=== PATIENT | female | born 1950 | race Caucasian/White ===

== ENCOUNTER 2017-11-02 06:27 | Inpatient (IN) ==
[~2017-11-02 06:27] MED LIST: Bacitracin 50,000 UNIT, Polymyxin B Sulfate 500,000 UNIT, Sodium Chloride IRRigation 1,... IR ONE
[2017-11-02] MEDS ORDERED: CeFAZolin Syr 2,000MG/20 ML 2,000 MG/20 ML SYRINGE IVPB ONE (06:59)
[2017-11-02] MEDS ORDERED: Ringers Solution, Lactated 1,000 ML IVC SCH (07:00)
[2017-11-02] MEDS ORDERED: Acetaminophen IV 1,000 MG/100 ML INFUS..BTL IVPB ONE (07:28)
[2017-11-02] MEDS ORDERED: Pregabalin 75 MG CAPSULE PO ONE (07:28)
[2017-11-02] MEDS ORDERED: Famotidine 20 MG/2 ML VIAL IVP ONE (07:28)
[2017-11-02] MEDS ORDERED: *HR* HYDROmorphone 2 MG TABLET PO PRN (07:30)
[2017-11-02] MEDS ORDERED: *HR* Labetalol 20 MG/4 ML SYRINGE IVP PRN (07:30)
[2017-11-02] MEDS ORDERED: *HR* Promethazine 25 MG/ML VIAL IVP PRN (07:30)
[2017-11-02] MEDS ORDERED: MORPHINE SUL Oral CONC 10 MG/0.5 ML ORAL.SYG SL PRN (07:30)
--- NOTE | 2017-11-02 07:37 | Anesthesia Evaluation PreOp ---
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 (Anxiety/Depression) Other Medical History: Renal (Hx R-kidney Ca s/p nephrectomy,), Thyroid ( Hypothyroidism,), GERD (IBS), Other (Pernicious anemia) Anesthesia History: No Prior Anesthetic Complications, Past Anesthesia (Hyster, R-Nephrectomy re: kidney CA 2009, D&C, Bladder suspension, Colonoscopy) Alcohol Use: none Medications and Allergies Escitalopram [Lexapro] 20 mg PO DAILY 11/02/17 [History] LORazepam [Ativan] 0.5 mg PO BID PRN 11/02/17 [History] Levothyroxine Sodium 150 mg PO DAILY 11/02/17 [History] Levothyroxine Sodium [Levo-T] 300 mcg PO DAILY 11/02/17 [History] 3 Allergy/AdvReac Type Severity Reaction Status Date / Time Oxycodone [From Percocet] Allergy Rash Verified 11/02/17 06:55 - Meds/Allergy Pre-op Review Medications Reviewed: Yes Allergies Reviewed: Yes Beta Blockers on Current Med List: No Anesthesia Results - Labs Laboratory Tests 10/26/17 10/26/17 10/26/17 09:54 09:54 09:54 WBC 6.0 Hgb 13.2 Hct 40.9 Plt Count 311 PT 11.3 INR 1.1 APTT 30.4 Sodium 140 Potassium 3.8 Chloride 107 Carbon Dioxide 23 BUN 17 Creatinine 1.11 Est GFR (Non-Af Amer) 49 L Anesthesia Exam O2 Sat Height 1.75 m Height 1.75 m Weight 74.389 kg Weight 74.389 kg O2 Sat by Pulse Oximetry 99 Vital Signs Temp Pulse Resp BP Pulse Ox 98.1 F 84 18 115/66 99 11/02/17 06:46 11/02/17 06:46 11/02/17 06:46 11/02/17 06:46 11/02/17 06:46 Height: 5'8" Weight: 162# BMI = 24 NPO (# of Hours): MNOc Pain Scale Used: Numeric (1 - 10) - HEENT Pupil (Motor): Pupils equal Mallampati: II Teeth: Normal Oral Opening: Greater than 3 - AIR[employer] WORK[employer] LOC: Oriented [employer] WORK[employer] Motor: Normal RUE, Normal LUE, Normal RLE, Normal Face, Deficit LLE [employer] WORK[employer] Sensory: Normal: RUE, LUE, RLE, Face, Deficit: LLE - Cardiac Rhythm: Regular Murmur: None - Pulmonary Breath Sounds: bilateral Clear Respiratory Effort: Symmetrical Anesthesia Assess/Plan ASA Score: 3 (Hx Kidney Ca, Hypothyroidism, Anxiety/Depression, IBS,) Modified Prather Scale for Level of Consciousness: Cooperative, oriented, and tranquil Anesthetic Plan: General Monitoring Plan: Standard Monitors Recovery Plan: PACU Anes Supervising Prov Stmt: Pt seen/evaluated, R&B Discussed,questions answered and consent obtained. Tru Moore MD
[2017-11-02] MEDS ORDERED: *HR* FentaNYL (PF) 100 MCG/2 ML VIAL ONE ×2 (07:48→11:09)
[2017-11-02] MEDS ORDERED: *HR* Propofol 200 MG/20 ML VIAL IVP ONE (07:48)
[2017-11-02] MEDS ORDERED: *HR* Remifentanil 1 MG VIAL IVP ONE ×2 (07:48→09:54)
[2017-11-02] MEDS ORDERED: *HR* Midazolam HCl 2 MG/2 ML VIAL ONE ×2 (07:48→09:26)
[2017-11-02] MEDS ORDERED: Lidocaine -MPF 2% 2 ML VIAL ONE ×2 (07:49→07:54)
[2017-11-02] MEDS ORDERED: *HR* Succinylcholine 200 MG/10 ML VIAL IVP ONE (07:49)
--- NOTE | 2017-11-02 07:58 | History & Physical Report ---
Date of Encounter: 11/02/17 Time of Encounter: 07:58 24 Hour HP Update - Instructions Instructions: If the History and Physical is less than 30 days old and was completed prior to A.M. admission and or procedure and has NOT been updated on calendar day of procedure please complete this update prior to performing procedure. - Update Patient reports changes in Medical Condition: No Changes in examination, assessment, or condition: No Changes in Medication: No Preop tests/diagnostics Reviewed: Yes Pre-Op MRSA Screen: Negative Surgery Remains Indicated: Yes Consent for Planned Operative Procedure(s) Verified: Yes - Pre-Operative Checklist Preoperative Checklist Indicated: No Prophylactic Antibiotic Ordered: Yes Home Medications Include Beta Nader: No Beta Nader Taken Today (Day of Surgery): No Beta Nader Taken Yesterday (Day Prior to Surgery): No Is VTE Prophylaxis Indicated?: Yes
[2017-11-02] MEDS ORDERED: EPHEDrine 50 MG/ML VIAL ONE ×2 (08:24→10:17)
[2017-11-02] MEDS ORDERED: Dexamethasone 4 MG/ML VIAL ONE (08:58)
[2017-11-02] MEDS ORDERED: Ondansetron 4 MG/2 ML VIAL ONE (08:58)
[2017-11-02] MEDS ORDERED: *HR* Rocuronium Bromide 50 MG/5 ML VIAL ONE (09:43)
[2017-11-02] MEDS ORDERED: Esmolol 100 MG/10 ML VIAL IVP ONE (11:37)
[2017-11-02] MEDS: Esmolol 100 MG/10 ML VIAL IVP PRN ×2 (12:00→12:10)
[2017-11-02] MEDS ORDERED: Naloxone 0.4 MG/ML INJ IVP PRN (13:45)
[2017-11-02] MEDS ORDERED: Ondansetron 4 MG/2 ML VIAL IVP PRN (13:45)
[2017-11-02] MEDS ORDERED: Acetaminophen 325 MG TABLET PO PRN (13:45)
--- NOTE | 2017-11-02 15:00 | Anesthesia Evaluation Post Op ---
Date of Encounter: 11/02/17 Time of Encounter: 14:58 - Vital Signs Vital Signs: Vital Signs Temp Pulse Resp BP Pulse Ox 11/02/17 12:26 98.2 F 112 16 134/69 100 11/02/17 12:16 107 16 129/70 98 11/02/17 12:06 101 16 129/70 99 11/02/17 11:56 98.2 F 109 16 129/65 99 11/02/17 11:46 129 16 136/65 99 11/02/17 11:36 125 16 135/67 99 11/02/17 11:26 98 F 134 14 131/60 100 Intake and Output 11/01/17 11/02/17 11/02/17 23:59 07:59 15:59 Output Total 125 / 125 Balance -125 / -125 Output: Estimated Blood Loss 125 / 125 Other: Weight 74.389 kg Patient Weight 11/02/17 23:59 Weight 74.389 kg - Lungs Lungs: Clear Ascult./Percussion - Airway Airway: Non-obstructed - Cardiovascular Regular Rate - Mental Status Mental Status: Alert & Oriented, Answers Appropriately - Pain Pain Scale: 6 Pain Scale used: Numeric (1 - 10) - Nausea Vomiting Nausea Vomiting: Not Present - Hydration Hydration: Tolerates oral liquids - Discharge PostOp Status: Transfer Patient to floor Anes Supervising Prov Stmt: Pt seen/evaluated, VSS and pt has met criteria for discharge to floor. - MD Oscar
[2017-11-02] MEDS: Ringers Solution, Lactated 1,000 ML IVC SCH (15:28)
[2017-11-02] MEDS ORDERED: *HR* LORazepam 0.5 MG TABLET PO PRN (16:31)
[2017-11-03 02:35] LABS: BUN/Creatinine Ratio 13 (6-26); Blood Urea Nitrogen 12 mg/dL (8-23); Calcium 8.6 mg/dL (8.6-10.3); Carbon Dioxide 27 mEq/L (23-29); Chloride 108 mEq/L (98-107); Glucose 146 mg/dL (70-105); Osmolality,Calculated 292 (280-300); Potassium 4.5 mEq/L (3.5-5.1); Sodium 140 mEq/L (136-145); eGFR For African Americans > 60 (> 60); eGFR For Non-African Americans > 60 (> 60)
[2017-11-03 10:38] LABS: Basophils % 0.3 %; Eosinophils % 0.1 %; Hematocrit 33.5 % (35.3-44.9); Hemoglobin 10.8 g/dL (11.5-15.4); Immature Granulocytes % 0.7 % (0-4); Lymphocytes # 0.8 K/mcL (0.6-4.6); Lymphocytes % 7.5 %; Mean Corpuscular HGB Conc 32.2 g/dL (31.6-35.5); Mean Corpuscular Hemoglobin 32.8 pg (28.0-33.3); Mean Corpuscular Volume 101.8 fL (83.0-100.0); Mean Platelet Volume 10.4 fL (9.4-12.4); Monocytes # 0.6 K/mcL (0.0-1.3); Monocytes % 5.2 %; Neutrophils # 9.1 K/mcL (1.6-8.9); Platelet Count 246 K/mcL (140-400); Red Blood Count 3.29 M/mcL (3.82-4.97); Segmented Neutrophils % 86.2 %
[2017-11-03] MEDS ORDERED: 0.9 % Sodium Chloride 500 ML IVC ONE (10:38)
[2017-11-03] MEDS: *HR* HYDROcodone/Acet 5/325 mg TABLET PO PRN (13:12)
--- NOTE | 2017-11-03 17:09 | Orthopedics Progress Note ---
Date of Encounter: 11/03/17 Time of Encounter: 08:30 - Assessment and Plan (1) Status post lumbar spinal fusion Current Visit: Yes Status: Acute (2) Lumbar stenosis Current Visit: Yes Status: Chronic Qualifiers: Neurogenic claudication status: unspecified Qualified Code(s): M48.061 - Spinal stenosis, lumbar region without neurogenic claudication (3) Lumbar radiculopathy Current Visit: Yes Status: Chronic (4) Spondylolisthesis Current Visit: Yes Status: Chronic Qualifiers: Spinal region: lumbosacral Qualified Code(s): M43.17 - Spondylolisthesis, lumbosacral region Subjective Principal diagnosis: Spondylolisthesis, lumbar stenosis, lumbar radiculopathy Interval history: Patient is postoperative day #1 status post posterior lumbar interbody fusion L5 -S1 performed on 11/02/[address] Barney. This is performed for spondylolisthesis L5 on S1, lumbar stenosis, lumbar radiculopathy. The patient is without complaints. Afebrile vital signs reveal hypotension. Incision is clean dry and intact. Neurovascularly intact with regard to bilateral lower extremities. Fires all upper and lower extremity motor groups. Assessment: Status post lumbar fusion Hypotension Plan: Reviewed postoperative restrictions and precautions. Patient verbalized understanding. Patient does not have back brace present in the room. Discussed the nurse navigator to get bracing to fit patient for brace. Mobilize with therapy as tolerated with respect to her hypotension Continue analgesics as needed Discharge planning - awaiting therapy recommendations Radiographs pending 1 L bolus for hypotension; check CBC and BMP, requested nursing staff to monitor patient closely Objective Vital signs: Vital Signs Temp Pulse Resp BP Pulse Ox 11/03/17 16:39 99.8 F H 108 17 81/42 94 11/03/17 10:30 99 F 76 19 97/61 94 11/03/17 10:13 99.0 F 108 17 90/58 97 11/03/17 07:08 98.6 F 85 73/45 100 11/03/17 03:24 98.4 F 81 16 97/61 98 11/02/17 23:16 98.4 F 87 16 99/62 99 11/02/17 18:23 98.1 F 99 16 100/64 99 Intake and Output 11/03/17 11/03/17 11/03/17 07:59 15:59 23:59 Intake Total 840 / 840 Output Total 400 / 400 Balance 440 / 440 Intake: Oral 840 / 840 Output: Urine 400 / 400 Other: Meal Lunch Percent of Meal Consumed 95% - Labs CBC & BMP: 11/03/17 10:20 11/03/17 00:56 Labs: Abnormal lab results RBC 3.29 M/mcL (3.82-4.97) L 11/03/17 10:20 Hgb 10.8 g/dL (11.5-15.4) L 11/03/17 10:20 Hct 33.5 % (35.3-44.9) L 11/03/17 10:20 MCV 101.8 fL (83.0-100.0) H 11/03/17 10:20 RDW 15.0 % (11.5-14.5) H 11/03/17 10:20 Neutrophils # 9.1 K/mcL (1.6-8.9) H 11/03/17 10:20 Chloride 108 mEq/L (98-107) H 11/03/17 00:56 Glucose 146 mg/dL (70-105) H 11/03/17 00:56 - VTE Documentation of Mechanical Device: Intermittent pneumatic compression device Consult Discharge Plan - Plan Referrals: Gavin Rosas DO [Primary Care Provider] -
[2017-11-03] MEDS: Ringers Solution, Lactated 1,000 ML IVC SCH (20:22)
[2017-11-04] MEDS: *HR* HYDROcodone/Acet 5/325 mg TABLET PO PRN ×3 (03:14→22:36)
--- NOTE | 2017-11-04 08:43 | Orthopedics Progress Note ---
Date of Encounter: 11/04/17 Time of Encounter: 08:43 - Assessment and Plan (1) Status post lumbar spinal fusion Current Visit: Yes Status: Acute (2) Lumbar stenosis Current Visit: Yes Status: Chronic Qualifiers: Neurogenic claudication status: unspecified Qualified Code(s): M48.061 - Spinal stenosis, lumbar region without neurogenic claudication (3) Lumbar radiculopathy Current Visit: Yes Status: Chronic (4) Spondylolisthesis Current Visit: Yes Status: Chronic Qualifiers: Spinal region: lumbosacral Qualified Code(s): M43.17 - Spondylolisthesis, lumbosacral region Subjective Principal diagnosis: Spondylolisthesis, lumbar stenosis, lumbar radiculopathy Interval history: Patient is postoperative day #2 status post posterior lumbar interbody fusion L5 -S1 performed on 11/02/[address] Barney. This is performed for spondylolisthesis L5 on S1, lumbar stenosis, lumbar radiculopathy. The patient is without complaints. Afebrile vital signs reveal stabilized blood pressures. Incision is clean dry and intact. Neurovascularly intact with regard to bilateral lower extremities. Fires all upper and lower extremity motor groups. Assessment: Status post lumbar fusion Hypotension - resolved Plan: Reviewed postoperative restrictions and precautions. Patient verbalized understanding. Brace on patient in proper positioning. Aware to wear with activity Mobilize with therapy Continue analgesics as needed Discharge planning - therapy recommending home with no needs vs home health Radiographs pending Will plan to discharge tomorrow after films and working with therapy again. Objective Vital signs: Vital Signs Temp Pulse Resp BP Pulse Ox 11/04/17 06:48 98.2 F 99 17 116/77 98 11/04/17 02:49 99.8 F H 110 16 108/67 93 11/04/17 00:06 99.5 F 118 14 124/69 95 11/03/17 20:57 99.8 F H 117 14 108/65 97 11/03/17 19:16 99.2 F 121 15 93/57 95 11/03/17 16:39 99.8 F H 108 17 81/42 94 11/03/17 10:30 99 F 76 19 97/61 94 11/03/17 10:13 99.0 F 108 17 90/58 97 Intake and Output 11/03/17 11/04/17 11/04/17 23:59 07:59 15:59 Intake Total 0 / 0 0 / 0 Output Total 400 / 400 Balance 0 / 0 -400 / -400 Intake: Oral 0 / 0 0 / 0 Output: Urine 400 / 400 Other: # Voids 1 1 Weight 76.91 kg Patient Weight 11/04/17 23:59 Weight 76.91 kg - Labs CBC & BMP: 11/03/17 10:20 11/03/17 00:56 Labs: Abnormal lab results RBC 3.29 M/mcL (3.82-4.97) L 11/03/17 10:20 Hgb 10.8 g/dL (11.5-15.4) L 11/03/17 10:20 Hct 33.5 % (35.3-44.9) L 11/03/17 10:20 MCV 101.8 fL (83.0-100.0) H 11/03/17 10:20 RDW 15.0 % (11.5-14.5) H 11/03/17 10:20 Neutrophils # 9.1 K/mcL (1.6-8.9) H 11/03/17 10:20 Chloride 108 mEq/L (98-107) H 11/03/17 00:56 Glucose 146 mg/dL (70-105) H 11/03/17 00:56 - VTE Documentation of Mechanical Device: Intermittent pneumatic compression device Consult Discharge Plan - Plan Referrals: Gavin Rosas DO [Primary Care Provider] -
--- NOTE | 2017-11-04 16:51 | Orthopedic Operative Note ---
Date of procedure: 11/02/17 Pre-op diagnosis: Spondylolisthesis, lumbar stenosis, lumbar radiculopathy Post-op diagnosis: same Operation/Findings: Posterior lumbar interbody fusion L5-S1: The patient successfully underwent general endotracheal anesthesia. The patient was given antibiotics prior to the start of the procedure. Compression boots and stockings were used for deep vein thrombosis prophylaxis. A Frausto catheter was placed. Leads for neuro monitoring were placed on the upper and lower extremities. This included the cranium. The neuro monitoring personnel confirmed there were satisfactory readings prior to the start of the procedure. The patient was turned prone on the Lucas table. The back was prepped and draped in the usual sterile fashion. An incision was was marked and centered over the involved L5-S1 levels in the mid line. The incision was deepened through the lumbar fascia. Bovie cautery and Serrano elevators were used to reflect the paraspinal musculature at the lateral extent of the transverse processes of the involved L5 and S1 levels. Karo clamps were placed over the L5 spinous process. An intraoperative lateral fluorograph was obtained. A conversation was held between the surgeon and radiologist and both confirmed we had the correct L5-S1 operative levels. We then placed pedicle screws in standard fashion with the aid of fluoroscopy and anatomic landmarks. Briefly a starter awl was used. A gearshift was subsequently used to enter the airplane pilot photogrammetry hole via a transpedicular route into the vertebral body. The airplane pilot photogrammetry hole was tapped with an undersized instrument, and subsequently twp 6.5 x 40 mm pedicle screws were placed on the left side at the indicated L5 and S1 levels. The screws were tested with the aid of the neurologic monitoring staff via pedicle screw stimulation. All reading suggested there was no significant cortical wall breech. The screws were also evaluated fluoro- graphically and appeared to be in satisfactory position. We then turned our attention to the decompression portion of the procedure. We removed the supraspinous and interspinous ligaments and subsequently the insertion of the ligamentum flavum on the undersurface of the proximal L5 lamina was dislodged with a curette. We then removed the ligamentum flavum as well as undercut the L5-S1 facets at this L5-S1 level to decompress the lateral recesses. We also performed a L5 laminectomy. After the decompression, which was over and above that which was required to place the interbody graft, the foramen and traversing roots at this L5-S1 level were found to be free and patent. We also took part of the left medial facet at L5- S1 in order to aid in the decompression. We then protected the neural elements including the thecal sac and traversing nerve root on the left with a dural retractor. We made an annulotomy into the L5-S1 disc space and then removed entire disc material using Pituitary instruments. We trialed various size grafts after the endplates were prepared for graft insertion. A 10 x 26 enter body graft fit well within the L5-S1 disc space. We obtained some bone from the left posterior superior iliac spine through us a separate incision and combined with this with the bone which we had saved from the laminectomy portion of the procedure. This autograft bone was first placed in the anterior portion of the L5-S1 disc space and additional bone was placed within the interbody graft spacer. We then placed the interbody graft spacer obliquely across the L5-S1 disc space towards the midline while protecting the neural elements with a root retractor. When the graft was found to be in satisfactory position the mainspring former arbor end was removed. We then copiously irrigated the wound. We then decorticated the L5 transverse processes and proximal portion of the sacrum as well as the L5-S1 facet joints of the involved L5-S1 levels to aid in the posterolateral fusion. We placed autograft bone in the lateral gutters over these regions. We then placed rods within the screw heads of the involved L5-S1 levels and first locked the distal screws and then subsequently locked the proximal screws so as to improve and reduce the spondylolisthesis previously seen. We then closed the wound in layers with 1 Vicryl for the fascia, 2-0 Vicryl. Subcutaneous tissue, and Dermabond was used for skin closure. Sterile dressings were placed over the wound. The patient was turned supine on a hospital bed and extubated. All sponge instruments and needle counts were correct at the end of the procedure. The patient tolerated the procedure well without complications. Anesthesia: GETA Surgeon: Derick Barney Jr Was there an food service assistant present: No Estimated blood loss (cc): 125 Specimen: None Condition: stable Disposition: PACU
[2017-11-05] MEDS: *HR* HYDROcodone/Acet 5/325 mg TABLET PO PRN ×2 (02:51→12:25)
--- NOTE | 2017-11-05 09:03 | Discharge Summary ---
Orders not resulted at time of discharge: Pending orders 11/02/17 XR fluoroscopy <1 hr [XR] Routine 11/05/17 00:01 XR lumbar spine 2-3V [XR] Routine Date of Encounter: 11/05/17 Time of Encounter: 08:59 - Discharge Diagnosis (1) Status post lumbar spinal fusion Priority: Primary Status: Acute (2) Lumbar stenosis Priority: Primary Status: Chronic Qualifiers: Neurogenic claudication status: unspecified Qualified Code(s): M48.061 - Spinal stenosis, lumbar region without neurogenic claudication (3) Lumbar radiculopathy Priority: Primary Status: Chronic (4) Spondylolisthesis Priority: Primary Status: Chronic Qualifiers: Spinal region: lumbosacral Qualified Code(s): M43.17 - Spondylolisthesis, lumbosacral region - Hospital Course Hospital course: Ms. Parrish is a 66 year old female status post Date of procedure: 11/02/17 Pre-op diagnosis: Spondylolisthesis, lumbar stenosis, lumbar radiculopathy Post-op diagnosis: same Operation/Findings: Posterior lumbar interbody fusion L5-S1 The patient had an uneventful postoperative course. Progressed from intravenous analgesic needs to oral analgesic needs only. Remained neurovascularly intact and mobilized satisfactorily. All intraoperative and/or postoperative radiographic studies were satisfactory. Patient was seen and evaluated by their surgeon during their hospital stay. Patient is discharged with plan for rehabilitation and follow-up in 2 weeks post discharge on analgesic medication and patient's home medications. - Time Spent with Patient Total time spent providing and/or coordinating discharge services: - Discharge Medications Prescriptions: HYDROcodone/Acet 5/325 mg [Maynard 5-325 mg] 1 tab PO Q6H PRN 7 Days #28 tablet PRN Reason: Severe Pain Home Medications: Escitalopram [Lexapro] 20 mg PO DAILY 11/02/17 [History] LORazepam [Ativan] 0.5 mg PO BID PRN 11/02/17 [History] Levothyroxine Sodium 150 mg PO DAILY 11/02/17 [History] Levothyroxine Sodium [Levo-T] 300 mcg PO DAILY 11/02/17 [History] Acetaminophen [Tylenol] 650 mg PO Q6HR PRN tablet 11/05/17 [Rx] HYDROcodone/Acet 5/325 mg [Maynard 5-325 mg] 1 tab PO Q6H PRN 7 Days #28 tablet [Rx] Allergies/Adverse Reactions: 3 Allergy/AdvReac Type Severity Reaction Status Date / Time Oxycodone [From Percocet] Allergy Rash Verified 11/02/17 06:55 Date of admission: 11/02/17 12:52 Primary care physician: Gavin Rosas, Consults: 11/02/17 13:45 Consult to Occupational Therapy [CONS] Routine Comment: Evaluate, develop and implement POC Reason for Consult: Postoperative rehabilitation Does patient have active BEDREST order?: No Is patient medically & hemodynamically stable?: Yes Patient assessed for mobility or mobilized this visit?: No Consult to Physical Therapy [CONS] Routine Comment: Evaluate, develop and implement POC Reason for Consult: Postoperative rehabilitation Does patient have active BEDREST order?: No Is patient medically & hemodynamically stable?: Yes Patient assessed for mobility or mobilized this visit?: No Consult to Spine Navigator [CONS] [CONS] Routine 11/02/17 17:17 Consult to Nutrition [CONS] Routine Comment: Consulting Provider: NUTRITION Reason for Dietary Consult: MST Score Consult to Pastoral Services [CONS] Routine Comment: 11/04/17 12:14 Consult to Attendant Sales [CONS] Routine Reason for SW Consult: Home health - VTE Documentation of Mechanical Device: Intermittent pneumatic compression device - Impressions ITS Impressions Lumbar Spine X-Ray 11/02/17 00:00 IMPRESSION: Posterior fusion at L5-S1. Imaging is somewhat limited due to technique. D/ / Carlos Richards MD / Carlos Richards MD Interpreting Provider: Carlos Richards MD - Patient Status Disposition: Home Health Service Condition: Good Functional capacity at discharge: uses cane/walker Overall status at discharge: patient is progressing back to baseline - Discharge Instructions Follow Up With: Gavin Rosas DO [Primary Care Provider] - - Diet and Activity Activity: as per physical therapy Diet: advance to your usual diet
[2017-11-05 11:15] VITALS: BP 103/64
--- NOTE | 2017-11-06 15:38 | Electrocardiograph Report ---
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
== END 2017-11-05 13:15 | disposition home health service (06) | DRG 460 ==
LOC: SAMDAY 06:27 → 3NENU 12:52
PROVIDERS: ADMIT Orthopaedic Surgery Orthopaedic Surgery of the Spine; ATTEND Orthopaedic Surgery Orthopaedic Surgery of the Spine

== ENCOUNTER 2019-06-21 07:29 | Inpatient (IN) ==
[2019-06-21] MEDS ORDERED: *HR* FentaNYL (PF) 100 MCG/2 ML VIAL ONE ×2 (08:01→09:39)
[2019-06-21] MEDS ORDERED: *HR* Propofol 200 MG/20 ML VIAL IVP ONE (08:01)
[2019-06-21] MEDS ORDERED: cefOXitin 2,000 MG in Water for inj. (sterile) 20 ML IVP ONE (08:02)
[2019-06-21] MEDS ORDERED: Ondansetron 4 MG/2 ML VIAL ONE (08:03)
[2019-06-21] MEDS ORDERED: *HR* Rocuronium Bromide 50 MG/5 ML VIAL ONE (08:03)
[2019-06-21] MEDS ORDERED: Dexamethasone 4 MG/ML VIAL ONE (08:03)
[2019-06-21] MEDS ORDERED: Lidocaine -MPF 2% 2 ML VIAL ONE (08:03)
[2019-06-21] MEDS ORDERED: Acetaminophen IV 1,000 MG/100 ML INFUS..BTL IVPB ONE (08:13)
[2019-06-21] MEDS ORDERED: Famotidine 20 MG/2 ML VIAL IVP ONE (08:13)
[2019-06-21] MEDS ORDERED: Ringers Solution, Lactated 1,000 ML IVC SCH (08:15)
[2019-06-21] MEDS ORDERED: *HR* Promethazine 25 MG/ML VIAL IVP PRN (08:22)
[2019-06-21] MEDS ORDERED: Morphine Sulfate 2 MG/ML SYRINGE IVP PRN (08:22)
[2019-06-21] MEDS ORDERED: Ondansetron 4 MG/2 ML VIAL IVP ONE (08:22)
[2019-06-21] MEDS ORDERED: Bupivacaine/EPI 1:200k 0.5%PF 30 ML VIAL ONE (08:35)
[2019-06-21] MEDS ORDERED: *HR* FentaNYL (PF) 100 MCG/2 ML VIAL IVP PRN (10:59)
[2019-06-21] MEDS ORDERED: Morphine Sulfate Oral CONC 10 MG/0.5 ML ORAL.SYG SL PRN (10:59)
[2019-06-21] MEDS: Acetaminophen IV 1,000 MG/100 ML INFUS..BTL IVPB SCH ×2 (14:46→20:12)
[2019-06-21] MEDS: *HR* Heparin 5,000 UNIT/ML VIAL SQ SCH (18:01)
[2019-06-21] MEDS: cefOXitin 1,000 MG in Water for inj. (sterile) 10 ML IVP SCH (18:01)
[2019-06-22] MEDS: cefOXitin 1,000 MG in Water for inj. (sterile) 10 ML IVP SCH (00:28)
[2019-06-22] MEDS: Acetaminophen IV 1,000 MG/100 ML INFUS..BTL IVPB SCH ×4 (03:53→22:07)
[2019-06-22] MEDS: *HR* Heparin 5,000 UNIT/ML VIAL SQ SCH ×2 (05:05→17:56)
[2019-06-22 05:06] LABS: Basophils # 0.1 K/mcL (0.0-0.2); Basophils % 0.7 %; Eosinophils # 0.2 K/mcL (0.0-0.6); Eosinophils % 2.2 %; Hematocrit 39.3 % (35.3-44.9); Hemoglobin 12.6 g/dL (11.5-15.4); Immature Granulocytes % 0.2 % (0-4); Lymphocytes % 11.6 %; Mean Corpuscular HGB Conc 32.1 g/dL (31.6-35.5); Mean Corpuscular Hemoglobin 28.6 pg (28.0-33.3); Mean Corpuscular Volume 89.3 fL (83.0-100.0); Mean Platelet Volume 11.2 fL (9.4-12.4); Monocytes # 0.8 K/mcL (0.0-1.3); Monocytes % 9.1 %; Neutrophils # 6.8 K/mcL (1.6-8.9); Platelet Count 258 K/mcL (140-400); Red Cell Distribution Width 13.4 % (11.5-14.5); Segmented Neutrophils % 76.2 %; White Blood Count 8.9 K/mcL (4.3-11.1)
[2019-06-22 05:27] LABS: BUN/Creatinine Ratio 17 (6-26); Blood Urea Nitrogen 18 mg/dL (8-23); Carbon Dioxide 27 mEq/L (23-29); Chloride 105 mEq/L (98-107); Glucose 97 mg/dL (70-105); Osmolality,Calculated 292 (280-300); Potassium 4.2 mEq/L (3.5-5.1); Sodium 140 mEq/L (136-145); eGFR For African Americans > 60 (> 60); eGFR For Non-African Americans 53 (> 60)
[2019-06-22] MEDS: Pantoprazole 40 MG VIAL IVP SCH (10:25)
[2019-06-22] MEDS: 0.9 % Sodium Chloride 1,000 ML IVC SCH (10:36)
[2019-06-23] MEDS: 0.9 % Sodium Chloride 1,000 ML IVC SCH ×2 (02:15→16:44)
[2019-06-23] MEDS: Acetaminophen IV 1,000 MG/100 ML INFUS..BTL IVPB SCH ×4 (03:50→21:04)
[2019-06-23] MEDS: *HR* Heparin 5,000 UNIT/ML VIAL SQ SCH ×2 (06:13→16:48)
[2019-06-23] MEDS: Sucralfate 1 GM TABLET PO SCH ×3 (09:41→16:48)
[2019-06-23] MEDS: Pantoprazole 40 MG VIAL IVP SCH (09:41)
[2019-06-24] MEDS: Acetaminophen IV 1,000 MG/100 ML INFUS..BTL IVPB SCH ×2 (03:08→09:00)
[2019-06-24] MEDS: *HR* Heparin 5,000 UNIT/ML VIAL SQ SCH ×2 (05:58→17:23)
[2019-06-24] MEDS: Ondansetron 4 MG/2 ML VIAL IVP PRN ×2 (06:14→14:01)
[2019-06-24] MEDS: Sucralfate 1 GM TABLET PO SCH ×3 (07:30→17:16)
[2019-06-24] MEDS: Pantoprazole 40 MG VIAL IVP SCH (09:53)
[2019-06-24] MEDS ORDERED: Morphine Sulfate Oral CONC 10 MG/0.5 ML ORAL.SYG SL PRN (15:23)
[2019-06-24] MEDS ORDERED: *HR* HYDROcodone/Acet 5/325 mg TABLET PO PRN (15:25)
[2019-06-24] MEDS ORDERED: Ibuprofen 600 MG TABLET PO PRN (15:25)
[2019-06-25] MEDS: *HR* Heparin 5,000 UNIT/ML VIAL SQ SCH (05:21)
[2019-06-25 07:15] VITALS: BP 105/63
[2019-06-25 08:36] LABS: Basophils # 0.1 K/mcL (0.0-0.2); Basophils % 0.8 %; Eosinophils # 0.6 K/mcL (0.0-0.6); Eosinophils % 7.5 %; Hematocrit 39.8 % (35.3-44.9); Immature Granulocytes % 0.5 % (0-4); Lymphocytes # 1.1 K/mcL (0.6-4.6); Lymphocytes % 13.2 %; Mean Corpuscular HGB Conc 32.7 g/dL (31.6-35.5); Mean Corpuscular Hemoglobin 28.4 pg (28.0-33.3); Mean Corpuscular Volume 86.9 fL (83.0-100.0); Mean Platelet Volume 10.8 fL (9.4-12.4); Monocytes # 0.8 K/mcL (0.0-1.3); Monocytes % 9.4 %; Neutrophils # 5.8 K/mcL (1.6-8.9); Platelet Count 330 K/mcL (140-400); Red Blood Count 4.58 M/mcL (3.82-4.97); Segmented Neutrophils % 68.6 %; White Blood Count 8.4 K/mcL (4.3-11.1)
[2019-06-25 08:55] LABS: BUN/Creatinine Ratio 17 (6-26); Blood Urea Nitrogen 14 mg/dL (8-23); Calcium 8.7 mg/dL (8.6-10.3); Carbon Dioxide 26 mEq/L (23-29); Chloride 104 mEq/L (98-107); Glucose 126 mg/dL (70-105); Osmolality,Calculated 290 (280-300); Sodium 139 mEq/L (136-145); eGFR For African Americans > 60 (> 60); eGFR For Non-African Americans > 60 (> 60)
[2019-06-25] MEDS: Sucralfate 1 GM TABLET PO SCH (09:12)
== END 2019-06-25 12:13 | disposition home health service (06) | DRG 374 ==
LOC: SAMDAY 07:29 → 3ANU 10:43
PROVIDERS: ADMIT Surgery; ATTEND Surgery

== ENCOUNTER 2019-08-08 19:28 | Inpatient (IN) ==
[2019-08-08] MEDS ORDERED: Isovue-370 500 ML BOTTLE IVP ONE (19:58)
[2019-08-08] MEDS ORDERED: 0.9 % Sodium Chloride 1,000 ML IV ONE ×2 (19:58→21:08)
[2019-08-08 20:42] LABS: Hemoglobin 10.6 g/dL (11.5-15.4); Red Cell Distribution Width 13.8 % (11.5-14.5)
[2019-08-08 20:44] LABS: Basophils % 1.3 %; Eosinophils % 0.6 %; Hematocrit 32.4 % (35.3-44.9); Immature Granulocytes % 1.3 % (0-4); Lymphocytes # 0.2 K/mcL (0.6-4.6); Lymphocytes % 10.6 %; Mean Corpuscular HGB Conc 32.7 g/dL (31.6-35.5); Mean Corpuscular Volume 85.7 fL (83.0-100.0); Mean Platelet Volume 10.5 fL (9.4-12.4); Monocytes # 0.8 K/mcL (0.0-1.3); Monocytes % 47.5 %; Neutrophils # 0.6 K/mcL (1.6-8.9); Platelet Count 162 K/mcL (140-400); Red Blood Count 3.78 M/mcL (3.82-4.97); Segmented Neutrophils % 38.7 %; White Blood Count 1.6 K/mcL (4.3-11.1)
[2019-08-08 20:54] LABS: INR 1.2; Prothrombin Time 13.5 Seconds (9.4-12.1)
[2019-08-08 21:00] LABS: Alanine Aminotransferase 20 Units/L (7-52); Albumin 3.1 g/dL (3.5-5.7); Albumin/Globulin Ratio 1.2 (1.1-2.2); Alkaline Phosphatase 77 Units/L (34-104); Aspartate Amino Transferase 21 Units/L (13-39); BUN/Creatinine Ratio 24 (6-26); Blood Urea Nitrogen 21 mg/dL (8-23); Calcium 8.7 mg/dL (8.6-10.3); Carbon Dioxide 20 mEq/L (23-29); Chloride 100 mEq/L (98-107); Globulin 2.5 g/dL (2.4-3.5); Glucose 113 mg/dL (70-105); Lipase 20 Units/L (11-82); Osmolality,Calculated 276 (280-300); Potassium 3.9 mEq/L (3.5-5.1); Sodium 131 mEq/L (136-145); Total Protein 5.6 g/dL (6.4-8.9); Troponin I < 0.03 ng/mL (< 0.04); eGFR For African Americans > 60 (> 60); eGFR For Non-African Americans > 60 (> 60)
[2019-08-08 21:18] LABS: Platelet Estimate Normal (Normal)
[2019-08-08] MEDS ORDERED: Piperacillin/Tazobactam 3.375 GM in 0.9 % Sodium Chloride Mini Bag 100 ML IVPB ONE (22:31)
[2019-08-08] MEDS ORDERED: Piperacillin/Tazobactam 3.375 GM VIAL ONE (23:09)
[2019-08-08] MEDS ORDERED: Naloxone 0.4 MG/ML INJ IVP PRN (23:29)
[2019-08-09 00:58] LABS: Mean Platelet Volume 10.1 fL (9.4-12.4)
[2019-08-09 00:59] LABS: Basophils % 0.8 %; Hematocrit 26.5 % (35.3-44.9); Hemoglobin 8.5 g/dL (11.5-15.4); Lymphocytes # 0.3 K/mcL (0.6-4.6); Mean Corpuscular HGB Conc 32.1 g/dL (31.6-35.5); Mean Corpuscular Hemoglobin 27.7 pg (28.0-33.3); Mean Corpuscular Volume 86.3 fL (83.0-100.0); Monocytes # 0.6 K/mcL (0.0-1.3); Monocytes % 48.8 %; Neutrophils # 0.4 K/mcL (1.6-8.9); Nucleated Red Blood Cells 1.6 /100 WBC (0); Platelet Count 127 K/mcL (140-400); Red Blood Count 3.07 M/mcL (3.82-4.97); Red Cell Distribution Width 13.9 % (11.5-14.5); Segmented Neutrophils % 30.4 %; White Blood Count 1.3 K/mcL (4.3-11.1)
[2019-08-09 01:15] LABS: BUN/Creatinine Ratio 23 (6-26); Blood Urea Nitrogen 17 mg/dL (8-23); Calcium 7.8 mg/dL (8.6-10.3); Carbon Dioxide 20 mEq/L (23-29); Chloride 106 mEq/L (98-107); Glucose 115 mg/dL (70-105); Osmolality,Calculated 276 (280-300); Potassium 4.1 mEq/L (3.5-5.1); Sodium 132 mEq/L (136-145); eGFR For African Americans > 60 (> 60); eGFR For Non-African Americans > 60 (> 60)
[2019-08-09] MEDS ORDERED: 0.9 % Sodium Chloride 1,000 ML IVC SCH (01:15)
[2019-08-09 01:28] LABS: Anisocytosis 1+ (Not Present); Microcytosis Present (Not Present); Platelet Estimate Slight Decrease (Normal)
[2019-08-09] MEDS: *HR* Heparin 5,000 UNIT/ML VIAL SQ SCH ×3 (05:50→22:23)
[2019-08-09] MEDS ORDERED: Diphenoxylate/Atropine 1 TAB TABLET PO PRN (07:24)
[2019-08-09] MEDS: Sucralfate 1 GM TABLET PO SCH ×3 (07:59→22:22)
[2019-08-09] MEDS: Piperacillin/Tazobactam 3.375 GM in 0.9 % Sodium Chloride Mini Bag 100 ML IVPB SCH ×2 (08:00→15:41)
[2019-08-09] MEDS: 0.9 % Sodium Chloride 1,000 ML IVC SCH (13:37)
[2019-08-09 17:27] LABS: Adenovirus F 40/41 PCR Not detected (Not detect); Astrovirus PCR Not detected (Not detect); Campylobacter by PCR Not detected (Not detect); Cryptosporidium by PCR Not detected (Not detect); Cyclospora cayetanensis PCR Not detected (Not detect); E. coli O157 by PCR Not detected (Not detect); Entamoeba histolytica PCR Not detected (Not detect); Enteroaggregative E.coli(EAEC) Not detected (Not detect); Enteropathogenic E.coli(EPEC) Not detected (Not detect); Enterotoxigenic E.coli (ETEC) Not detected (Not detect); Giardia lamblia PCR Not detected (Not detect); Norovirus GI/GII PCR Not detected (Not detect); Plesiomonas shigelloides PCR Not detected (Not detect); Rotavirus A PCR Not detected (Not detect); Salmonella PCR Not detected (Not detect); Sapovirus PCR Not detected (Not detect); Shig/EnteroinvasiveE coli EIEC Not detected (Not detect); Shigalike tox-prod E coli STEC Not detected (Not detect); Vibrio PCR Not detected (Not detect); Vibrio cholerae PCR Not detected (Not detect); Yersinia enterocolitica PCR Not detected (Not detect)
[2019-08-09 17:29] LABS: C.difficile Toxin A/B Gene PCR DETECTED (Not detect)
[2019-08-09] MEDS: Vancomycin Oral Soln 125 MG/2.5 ML UDC PO SCH ×2 (17:53→22:22)
[2019-08-09] MEDS ORDERED: Diphenoxylate/Atropine 1 TAB TABLET PO SCH (19:00)
[2019-08-10] MEDS: 0.9 % Sodium Chloride 1,000 ML IVC SCH (01:01)
[2019-08-10] MEDS: Piperacillin/Tazobactam 3.375 GM in 0.9 % Sodium Chloride Mini Bag 100 ML IVPB SCH ×2 (01:01→08:52)
[2019-08-10 03:16] LABS: Bacteria,Urine Many per hpf (None-Few); Bilirubin,Urine Negative (Negative); Clarity,Urine Cloudy (Clear); Color,Urine Yellow (Yellow); Ketones,Urine Negative (Negative); Leukocyte Esterase,Urine Moderate (Negative); Protein,Urine Trace mg/dL (Neg-Trace); Squamous Epithelial Cell,Urine Many per lpf (None-Few); Urobilinogen,Urine Normal (Normal)
[2019-08-10 03:17] LABS: Blood,Urine Negative (Negative); Glucose,Urine (UA) Normal (Normal); Nitrite,Urine Negative (Negative)
[2019-08-10 03:37] LABS: Hyaline Casts,Urine None Seen per lpf (None-Few); Transitional Epi Cells,Urine Few per hpf (None-Few)
[2019-08-10] MEDS ORDERED: Diphenoxylate/Atropine 1 TAB TABLET PO SCH (05:00)
[2019-08-10] MEDS: *HR* Heparin 5,000 UNIT/ML VIAL SQ SCH ×3 (05:43→20:54)
[2019-08-10 06:01] LABS: Hematocrit 24.5 % (35.3-44.9); Mean Corpuscular HGB Conc 32.7 g/dL (31.6-35.5); Mean Corpuscular Hemoglobin 28.2 pg (28.0-33.3); Mean Corpuscular Volume 86.3 fL (83.0-100.0); Mean Platelet Volume 9.4 fL (9.4-12.4); Neutrophils # 0.2 K/mcL (1.6-8.9); Platelet Count 189 K/mcL (140-400); Red Blood Count 2.84 M/mcL (3.82-4.97); Red Cell Distribution Width 13.9 % (11.5-14.5); White Blood Count 1.3 K/mcL (4.3-11.1)
[2019-08-10 06:20] LABS: BUN/Creatinine Ratio 11 (6-26); Blood Urea Nitrogen 9 mg/dL (8-23); Calcium 7.8 mg/dL (8.6-10.3); Carbon Dioxide 20 mEq/L (23-29); Chloride 107 mEq/L (98-107); Glucose 83 mg/dL (70-105); Osmolality,Calculated 276 (280-300); Potassium 3.3 mEq/L (3.5-5.1); Sodium 134 mEq/L (136-145); eGFR For African Americans > 60 (> 60); eGFR For Non-African Americans > 60 (> 60)
[2019-08-10 06:25] LABS: Anisocytosis 1+ (Not Present); Lymphocytes # 0.6 K/mcL (0.6-4.6); Monocytes # 0.4 K/mcL (0.0-1.3)
[2019-08-10 06:26] LABS: Basophilic Stippling 1+ (Not Present); Polychromasia 1+ (Not Present)
[2019-08-10 06:27] LABS: Platelet Estimate Normal (Normal)
[2019-08-10] MEDS: Vancomycin Oral Soln 125 MG/2.5 ML UDC PO SCH ×4 (08:52→20:54)
[2019-08-10] MEDS: Sucralfate 1 GM TABLET PO SCH ×3 (08:53→21:26)
[2019-08-10] MEDS: Ringers Solution, Lactated 1,000 ML IVC SCH (14:36)
[2019-08-10] MEDS ORDERED: Potassium Phosphate 44 MEQ in 0.9 % Sodium Chloride 250 ML IVPB ONE (16:00)
[2019-08-11] MEDS: Ringers Solution, Lactated 1,000 ML IVC SCH ×3 (00:34→19:46)
[2019-08-11 05:58] LABS: Hematocrit 24.7 % (35.3-44.9); Hemoglobin 8.1 g/dL (11.5-15.4); Mean Corpuscular HGB Conc 32.8 g/dL (31.6-35.5); Mean Corpuscular Hemoglobin 27.5 pg (28.0-33.3); Mean Corpuscular Volume 83.7 fL (83.0-100.0); Mean Platelet Volume 8.8 fL (9.4-12.4); Platelet Count 252 K/mcL (140-400); Red Blood Count 2.95 M/mcL (3.82-4.97); Red Cell Distribution Width 13.8 % (11.5-14.5); White Blood Count 2.5 K/mcL (4.3-11.1)
[2019-08-11 06:17] LABS: BUN/Creatinine Ratio 7 (6-26); Blood Urea Nitrogen 5 mg/dL (8-23); Calcium 7.9 mg/dL (8.6-10.3); Carbon Dioxide 22 mEq/L (23-29); Chloride 106 mEq/L (98-107); Glucose 102 mg/dL (70-105); Osmolality,Calculated 275 (280-300); Sodium 134 mEq/L (136-145); eGFR For African Americans > 60 (> 60); eGFR For Non-African Americans > 60 (> 60)
[2019-08-11] MEDS: *HR* Heparin 5,000 UNIT/ML VIAL SQ SCH ×3 (06:26→19:46)
[2019-08-11] MEDS: Vancomycin Oral Soln 125 MG/2.5 ML UDC PO SCH ×4 (09:25→19:46)
[2019-08-11] MEDS: Sucralfate 1 GM TABLET PO SCH ×3 (09:25→21:23)
[2019-08-11] MEDS ORDERED: *HR* Dextrose 50 % in Water (Syg) 50 ML SYRINGE IVP PRN (20:19)
[2019-08-11] MEDS ORDERED: Dextrose Gel 15 GM/37.5 ML TUBE PO PRN ×2 (20:19)
[2019-08-11] MEDS ORDERED: D5% in Water 1,000 ML IVC PRN (20:19)
[2019-08-12] MEDS ORDERED: Insulin LISPRO 300 UNITS/3 ML VIAL SQ SCH
[2019-08-12] MEDS: Insulin LISPRO 300 UNITS/3 ML VIAL SQ SCH ×6 (00:23→20:32)
[2019-08-12 04:46] LABS: BUN/Creatinine Ratio 7 (6-26); Blood Urea Nitrogen 4 mg/dL (8-23); Calcium 7.6 mg/dL (8.6-10.3); Carbon Dioxide 21 mEq/L (23-29); Chloride 109 mEq/L (98-107); Glucose 121 mg/dL (70-105); Osmolality,Calculated 286 (280-300); Potassium 2.5 mEq/L (3.5-5.1); Sodium 139 mEq/L (136-145); eGFR For African Americans > 60 (> 60); eGFR For Non-African Americans > 60 (> 60)
[2019-08-12] MEDS ORDERED: Potassium Chloride 40 MEQ, Lidocaine 1% 2 ML in 0.9 % Sodium Chloride 500 ML IVPB ONE (06:45)
[2019-08-12] MEDS: Ringers Solution, Lactated 1,000 ML IVC SCH (07:23)
[2019-08-12] MEDS: *HR* Heparin 5,000 UNIT/ML VIAL SQ SCH ×3 (07:24→20:25)
[2019-08-12] MEDS: Sucralfate 1 GM TABLET PO SCH ×4 (08:45→20:26)
[2019-08-12] MEDS: Vancomycin Oral Soln 125 MG/2.5 ML UDC PO SCH ×4 (08:46→20:26)
[2019-08-12] MEDS: 0.9 % Sodium Chloride w KCl 40 MEQ/1,000 ML MLS IVC SCH ×2 (13:12→20:26)
[2019-08-12] MEDS ORDERED: Morphine Sulfate 2 MG/ML SYRINGE IVP ONE (16:20)
[2019-08-12 16:37] LABS: BUN/Creatinine Ratio 10 (6-26); Blood Urea Nitrogen 5 mg/dL (8-23); Calcium 7.4 mg/dL (8.6-10.3); Carbon Dioxide 22 mEq/L (23-29); Chloride 107 mEq/L (98-107); Glucose 97 mg/dL (70-105); Osmolality,Calculated 275 (280-300); Potassium 2.9 mEq/L (3.5-5.1); Sodium 134 mEq/L (136-145); eGFR For African Americans > 60 (> 60); eGFR For Non-African Americans > 60 (> 60)
[2019-08-12] MEDS ORDERED: *HR* FentaNYL (PF) 100 MCG/2 ML VIAL IVP ONE (17:59)
[2019-08-13] MEDS: Insulin LISPRO 300 UNITS/3 ML VIAL SQ SCH ×6 (00:40→21:36)
[2019-08-13] MEDS: Ketorolac 30 MG/ML VIAL IVP PRN ×2 (04:45→16:01)
[2019-08-13] MEDS: *HR* Heparin 5,000 UNIT/ML VIAL SQ SCH ×3 (04:46→21:46)
[2019-08-13 05:26] LABS: BUN/Creatinine Ratio 11 (6-26); Blood Urea Nitrogen 6 mg/dL (8-23); Calcium 7.6 mg/dL (8.6-10.3); Carbon Dioxide 22 mEq/L (23-29); Chloride 110 mEq/L (98-107); Glucose 113 mg/dL (70-105); Osmolality,Calculated 280 (280-300); Potassium 3.4 mEq/L (3.5-5.1); Sodium 136 mEq/L (136-145); eGFR For African Americans > 60 (> 60); eGFR For Non-African Americans > 60 (> 60)
[2019-08-13] MEDS: Vancomycin Oral Soln 125 MG/2.5 ML UDC PO SCH ×4 (07:26→21:48)
[2019-08-13] MEDS: Sucralfate 1 GM TABLET PO SCH ×3 (07:31→21:48)
[2019-08-13] MEDS ORDERED: Ringers Solution, Lactated 1,000 ML IVC SCH (09:00)
[2019-08-14] MEDS: Insulin LISPRO 300 UNITS/3 ML VIAL SQ SCH ×6 (03:33→22:34)
[2019-08-14 05:24] LABS: BUN/Creatinine Ratio 14 (6-26); Blood Urea Nitrogen 8 mg/dL (8-23); Calcium 8.4 mg/dL (8.6-10.3); Carbon Dioxide 25 mEq/L (23-29); Chloride 108 mEq/L (98-107); Glucose 93 mg/dL (70-105); Osmolality,Calculated 284 (280-300); Potassium 3.7 mEq/L (3.5-5.1); Sodium 138 mEq/L (136-145); eGFR For African Americans > 60 (> 60); eGFR For Non-African Americans > 60 (> 60)
[2019-08-14] MEDS: *HR* Heparin 5,000 UNIT/ML VIAL SQ SCH ×3 (06:09→22:43)
[2019-08-14] MEDS: Sucralfate 1 GM TABLET PO SCH ×3 (07:30→22:34)
[2019-08-14] MEDS: Vancomycin Oral Soln 125 MG/2.5 ML UDC PO SCH ×4 (07:30→22:42)
[2019-08-14] MEDS: Ketorolac 30 MG/ML VIAL IVP PRN ×3 (07:31→22:42)
[2019-08-15] MEDS: Insulin LISPRO 300 UNITS/3 ML VIAL SQ SCH ×6 (00:44→21:23)
[2019-08-15] MEDS: *HR* Heparin 5,000 UNIT/ML VIAL SQ SCH ×3 (05:40→21:36)
[2019-08-15 06:44] LABS: BUN/Creatinine Ratio 18 (6-26); Blood Urea Nitrogen 11 mg/dL (8-23); Calcium 8.5 mg/dL (8.6-10.3); Carbon Dioxide 26 mEq/L (23-29); Chloride 106 mEq/L (98-107); Glucose 92 mg/dL (70-105); Osmolality,Calculated 285 (280-300); Potassium 3.4 mEq/L (3.5-5.1); Sodium 138 mEq/L (136-145); eGFR For African Americans > 60 (> 60); eGFR For Non-African Americans > 60 (> 60)
[2019-08-15] MEDS: Vancomycin Oral Soln 125 MG/2.5 ML UDC PO SCH ×4 (08:32→21:36)
[2019-08-15] MEDS: Sucralfate 1 GM TABLET PO SCH ×3 (08:32→21:23)
[2019-08-15] MEDS: Ketorolac 30 MG/ML VIAL IVP PRN ×2 (08:44→17:22)
[2019-08-16] MEDS: Insulin LISPRO 300 UNITS/3 ML VIAL SQ SCH ×3 (00:12→09:37)
[2019-08-16] MEDS: *HR* Heparin 5,000 UNIT/ML VIAL SQ SCH (06:12)
[2019-08-16 07:42] VITALS: BP 144/81
[2019-08-16] MEDS: Sucralfate 1 GM TABLET PO SCH (09:38)
[2019-08-16] MEDS: Vancomycin Oral Soln 125 MG/2.5 ML UDC PO SCH (09:39)
[2019-08-16] MEDS: Ketorolac 30 MG/ML VIAL IVP PRN (10:47)
== END 2019-08-16 12:15 | DRG 393 ==
LOC: EMEROOARM 19:28 → 3ANU 19:28 → SUATTDRO 08-09 11:55
PROVIDERS: ADMIT Internal Medicine; ATTEND Internal Medicine

== ENCOUNTER 2020-02-17 15:17 | Inpatient (IN) ==
[2020-02-17] MEDS ORDERED: Isovue-300 50ML VIAL ONE (17:38)
[2020-02-17] MEDS ORDERED: *HR* FentaNYL (PF) 100 MCG/2 ML VIAL ONE (17:55)
[2020-02-17] MEDS ORDERED: Ondansetron 4 MG/2 ML VIAL ONE (17:56)
[2020-02-17] MEDS ORDERED: Dexamethasone 4 MG/ML VIAL ONE (17:56)
[2020-02-17] MEDS ORDERED: *HR* Succinylcholine 200 MG/10 ML VIAL IVP ONE (17:56)
[2020-02-17] MEDS ORDERED: Lidocaine -MPF 2% 2 ML VIAL ONE (17:56)
[2020-02-17] MEDS ORDERED: *HR* Propofol 200 MG/20 ML VIAL IVP ONE (17:59)
[2020-02-17] MEDS ORDERED: Ondansetron 4 MG/2 ML VIAL IVP PRN (18:33)
[2020-02-17] MEDS ORDERED: *HR* Promethazine 25 MG/ML VIAL IVP PRN (18:33)
[2020-02-17] MEDS ORDERED: *HR* HYDROmorphone (PF) 1 MG/ML SYRINGE IVP PRN (18:33)
[2020-02-17] MEDS ORDERED: *HR* Labetalol 20 MG/4 ML SYRINGE IVP PRN (18:33)
[2020-02-17] MEDS ORDERED: Naloxone 0.4 MG/ML INJ IVP PRN (19:49)
[2020-02-17] MEDS ORDERED: Hyoscyamine SL 0.125 MG TAB.SUBL SL PRN (19:49)
[2020-02-17] MEDS: *HR* Promethazine 25 MG/ML VIAL IVP PRN (23:59)
[2020-02-17] MEDS: 0.9 % Sodium Chloride 1,000 ML IVC SCH (23:59)
[2020-02-18] MEDS ORDERED: Ondansetron ODT 4 MG TAB.RAPDIS SL PRN (02:10)
[2020-02-18 05:19] LABS: Hematocrit 35.1 % (35.3-44.9); Mean Corpuscular HGB Conc 31.3 g/dL (31.6-35.5); Mean Corpuscular Hemoglobin 25.9 pg (28.0-33.3); Mean Corpuscular Volume 82.8 fL (83.0-100.0); Mean Platelet Volume 10.5 fL (9.4-12.4); Monocytes # 0.2 K/mcL (0.0-1.3); Platelet Count 190 K/mcL (140-400); Red Blood Count 4.24 M/mcL (3.82-4.97); White Blood Count 4.2 K/mcL (4.3-11.1)
[2020-02-18 05:46] LABS: Calcium 8.6 mg/dL (8.6-10.3); Potassium 4.6 mEq/L (3.5-5.1)
[2020-02-18 05:48] LABS: Magnesium 2.3 mg/dL (1.6-2.6); Phosphorous 3.7 mg/dL (2.7-4.5)
[2020-02-18 05:54] LABS: Lymphocytes # 0.3 K/mcL (0.6-4.6); Neutrophils # 3.7 K/mcL (1.6-8.9)
[2020-02-18 05:55] LABS: Platelet Estimate Normal (Normal)
[2020-02-18] MEDS: *HR* Promethazine 25 MG/ML VIAL IVP PRN ×3 (09:01→23:47)
[2020-02-18] MEDS: 0.9 % Sodium Chloride 1,000 ML IVC SCH (09:03)
[2020-02-18] MEDS: Vancomycin Oral Soln 125 MG/2.5 ML UDC PO SCH ×4 (11:06→20:59)
[2020-02-18] MEDS: *HR* Heparin 5,000 UNIT/ML VIAL SQ SCH (18:30)
[2020-02-19] MEDS: *HR* Heparin 5,000 UNIT/ML VIAL SQ SCH ×2 (06:25→17:49)
[2020-02-19] MEDS: Vancomycin Oral Soln 125 MG/2.5 ML UDC PO SCH ×4 (07:54→21:41)
[2020-02-19 09:27] LABS: Hematocrit 34.8 % (35.3-44.9); Hemoglobin 10.5 g/dL (11.5-15.4); Lymphocytes # 0.2 K/mcL (0.6-4.6); Mean Corpuscular HGB Conc 30.2 g/dL (31.6-35.5); Mean Corpuscular Hemoglobin 25.7 pg (28.0-33.3); Mean Corpuscular Volume 85.3 fL (83.0-100.0); Mean Platelet Volume 10.1 fL (9.4-12.4); Platelet Count 232 K/mcL (140-400); Red Blood Count 4.08 M/mcL (3.82-4.97); Red Cell Distribution Width 15.4 % (11.5-14.5); White Blood Count 5.6 K/mcL (4.3-11.1)
[2020-02-19 09:47] LABS: Calcium 8.6 mg/dL (8.6-10.3); Magnesium 2.4 mg/dL (1.6-2.6); Potassium 4.2 mEq/L (3.5-5.1)
[2020-02-19] MEDS ORDERED: 0.9 % Sodium Chloride 1,000 ML IVC SCH (10:00)
[2020-02-19 10:08] LABS: Monocytes # 0.2 K/mcL (0.0-1.3); Neutrophils # 5.2 K/mcL (1.6-8.9)
[2020-02-19 10:09] LABS: Platelet Estimate Normal (Normal)
[2020-02-19] MEDS ORDERED: 0.9 % Sodium Chloride 500 ML IVC ONE (11:30)
[2020-02-19] MEDS: Sodium Bicarbonate 75 MEQ in 0.45 % Sodium Chloride 1,000 ML IVC SCH (15:20)
[2020-02-19] MEDS ORDERED: Scopolamine Patch 1.5 MG PATCH.TD72 TD SCH (17:15)
[2020-02-19] MEDS: *HR* Promethazine 25 MG/ML VIAL IVP PRN (17:55)
[2020-02-20] MEDS: *HR* Heparin 5,000 UNIT/ML VIAL SQ SCH ×2 (05:15→18:00)
[2020-02-20] MEDS: Sodium Bicarbonate 75 MEQ in 0.45 % Sodium Chloride 1,000 ML IVC SCH ×2 (05:17→15:32)
[2020-02-20] MEDS: *HR* Promethazine 25 MG/ML VIAL IVP PRN ×3 (05:56→22:30)
[2020-02-20 06:21] LABS: Hematocrit 35.6 % (35.3-44.9); Hemoglobin 10.8 g/dL (11.5-15.4); Mean Corpuscular HGB Conc 30.3 g/dL (31.6-35.5); Mean Corpuscular Hemoglobin 25.9 pg (28.0-33.3); Mean Corpuscular Volume 85.4 fL (83.0-100.0); Mean Platelet Volume 10.4 fL (9.4-12.4); Platelet Count 280 K/mcL (140-400); Red Blood Count 4.17 M/mcL (3.82-4.97); Red Cell Distribution Width 15.8 % (11.5-14.5); White Blood Count 5.7 K/mcL (4.3-11.1)
[2020-02-20 06:38] LABS: Calcium 8.1 mg/dL (8.6-10.3); Potassium 3.9 mEq/L (3.5-5.1)
[2020-02-20] MEDS: Vancomycin Oral Soln 125 MG/2.5 ML UDC PO SCH ×4 (10:25→22:31)
[2020-02-20] MEDS ORDERED: *HR* FentaNYL (PF) 100 MCG/2 ML VIAL IVP ONE (11:34)
[2020-02-20] MEDS: 0.9 % Sodium Chloride 1,000 ML IVC SCH (13:33)
[2020-02-20 17:15] LABS: INR 1.1; Prothrombin Time 13.2 Seconds (9.4-12.1)
[2020-02-20] MEDS: Haloperidol Oral Conc 10 MG/5 ML UDC PO SCH (17:55)
[2020-02-21] MEDS: Haloperidol Oral Conc 10 MG/5 ML UDC PO SCH ×4 (01:55→17:18)
[2020-02-21] MEDS: 0.9 % Sodium Chloride 1,000 ML IVC SCH (01:57)
[2020-02-21] MEDS: Sodium Bicarbonate 75 MEQ in 0.45 % Sodium Chloride 1,000 ML IVC SCH ×3 (03:12→17:29)
[2020-02-21] MEDS: *HR* Heparin 5,000 UNIT/ML VIAL SQ SCH ×2 (05:59→17:18)
[2020-02-21 08:18] LABS: Hematocrit 31.8 % (35.3-44.9); Hemoglobin 9.6 g/dL (11.5-15.4); Mean Corpuscular HGB Conc 30.2 g/dL (31.6-35.5); Mean Corpuscular Hemoglobin 25.3 pg (28.0-33.3); Mean Corpuscular Volume 83.7 fL (83.0-100.0); Mean Platelet Volume 10.7 fL (9.4-12.4); Platelet Count 304 K/mcL (140-400); Red Cell Distribution Width 16.1 % (11.5-14.5); White Blood Count 4.6 K/mcL (4.3-11.1)
[2020-02-21 08:26] LABS: INR 1.1; Prothrombin Time 12.5 Seconds (9.4-12.1)
[2020-02-21 08:40] LABS: Potassium 3.9 mEq/L (3.5-5.1)
[2020-02-21] MEDS ORDERED: Cyanocobalamin (B-12) 1,000 MCG/ML VIAL SQ ONE (09:00)
[2020-02-21] MEDS ORDERED: Vancomycin 1,500 MG/265 ML IV.SOLN IVPB ONE (09:21)
[2020-02-21] MEDS ORDERED: 0.9 % Sodium Chloride 500 ML ONE ×2 (10:50→10:58)
[2020-02-21] MEDS ORDERED: Lidocaine/EPI 1:100k 1% 50 ML VIAL ONE (10:50)
[2020-02-21] MEDS ORDERED: *HR* FentaNYL (PF) 100 MCG/2 ML VIAL IVP ONE (10:53)
[2020-02-21] MEDS ORDERED: *HR* Midazolam HCl 2 MG/2 ML VIAL IVP ONE (10:53)
[2020-02-21] MEDS ORDERED: Isovue-300 150 ML INFUS..BTL IVP ONE (11:22)
[2020-02-21] MEDS: Vancomycin Oral Soln 125 MG/2.5 ML UDC PO SCH ×4 (12:12→21:40)
[2020-02-21] MEDS: Cefepime HCl 1,000 MG in 0.9 % Sodium Chloride Mini Bag 100 ML IVPB SCH (12:29)
[2020-02-21] MEDS: Morphine Sulfate Oral CONC 10 MG/0.5 ML ORAL.SYG SL PRN (16:00)
[2020-02-21] MEDS: *HR* Promethazine 25 MG/ML VIAL IVP PRN (21:40)
[2020-02-22] MEDS: Sodium Bicarbonate 75 MEQ in 0.45 % Sodium Chloride 1,000 ML IVC SCH (01:13)
[2020-02-22] MEDS: Haloperidol Oral Conc 10 MG/5 ML UDC PO SCH ×3 (01:13→11:46)
[2020-02-22] MEDS: *HR* Heparin 5,000 UNIT/ML VIAL SQ SCH (05:47)
[2020-02-22 06:18] LABS: Hematocrit 30.4 % (35.3-44.9); Hemoglobin 9.5 g/dL (11.5-15.4); Mean Corpuscular HGB Conc 31.3 g/dL (31.6-35.5); Mean Corpuscular Hemoglobin 26.1 pg (28.0-33.3); Mean Corpuscular Volume 83.5 fL (83.0-100.0); Mean Platelet Volume 10.1 fL (9.4-12.4); Platelet Count 311 K/mcL (140-400); Red Blood Count 3.64 M/mcL (3.82-4.97); White Blood Count 3.9 K/mcL (4.3-11.1)
[2020-02-22 06:37] LABS: Calcium 8.6 mg/dL (8.6-10.3); Potassium 3.6 mEq/L (3.5-5.1)
[2020-02-22] MEDS ORDERED: Vancomycin 1,500 MG/265 ML IV.SOLN IVPB ONE (06:53)
[2020-02-22 07:04] VITALS: BP 108/70
[2020-02-22] MEDS: Vancomycin Oral Soln 125 MG/2.5 ML UDC PO SCH ×2 (07:51→14:43)
[2020-02-22] MEDS: *HR* Promethazine 25 MG/ML VIAL IVP PRN (08:05)
[2020-02-22] MEDS: Morphine Sulfate Oral CONC 10 MG/0.5 ML ORAL.SYG SL PRN (11:46)
[2020-02-22] MEDS: Cefepime HCl 1,000 MG in 0.9 % Sodium Chloride Mini Bag 100 ML IVPB SCH (11:46)
[2020-02-22] MEDS ORDERED: Morphine Sulfate Oral CONC 10 MG/0.5 ML ORAL.SYG SL ONE (14:27)
[2020-02-23] MEDS ORDERED: Pantoprazole 40 MG VIAL IVP SCH (09:00)
== END 2020-02-22 15:01 | disposition home or self-care (01) | DRG 659 ==
LOC: 3ANU → SUATTDRO 16:56
PROVIDERS: ADMIT Internal Medicine; ATTEND Internal Medicine

== ENCOUNTER 2020-02-22 14:32 | Inpatient (IN) ==
[2020-02-22] MEDS ORDERED: Scopolamine Patch 1.5 MG PATCH.TD72 TD SCH (16:15)
[2020-02-22] MEDS ORDERED: Haloperidol Oral Conc 10 MG/5 ML UDC PO SCH ×2 (16:15→21:00)
[2020-02-22] MEDS ORDERED: *HR* Promethazine 25 MG/ML VIAL IVP PRN (16:15)
[2020-02-22] MEDS: Haloperidol Oral Conc 10 MG/5 ML UDC GTUBE SCH ×2 (17:54→18:15)
[2020-02-22] MEDS: Vancomycin Oral Soln 125 MG/2.5 ML UDC GTUBE SCH ×3 (17:54→21:14)
[2020-02-22] MEDS: Haloperidol Lactate 5 MG/ML VIAL IVP SCH (21:08)
[2020-02-23] MEDS: Haloperidol Lactate 5 MG/ML VIAL IVP SCH ×3 (08:26→19:54)
[2020-02-23] MEDS: Vancomycin Oral Soln 125 MG/2.5 ML UDC GTUBE SCH (08:28)
[2020-02-23] MEDS: Morphine Sulfate Oral CONC 10 MG/0.5 ML ORAL.SYG PO PRN ×4 (08:40→19:55)
[2020-02-23] MEDS ORDERED: Atropine Sulfate 1% 40 DROP/2 ML BOTTLE SL PRN (10:37)
[2020-02-23] MEDS ORDERED: *HR* FentaNYL PATCH 25 MCG PATCH TD SCH (10:45)
[2020-02-24] MEDS: Morphine Sulfate Oral CONC 10 MG/0.5 ML ORAL.SYG PO PRN ×3 (05:04→18:54)
[2020-02-24] MEDS: *HR* LORazepam Oral Conc 2 MG/ML PO PRN ×2 (05:05→17:06)
[2020-02-24 06:52] VITALS: BP 119/74
[2020-02-24] MEDS: Haloperidol Lactate 5 MG/ML VIAL IVP SCH ×3 (08:45→20:13)
[2020-02-24] MEDS: Acetaminophen 650 MG RECTAL SUPP RC SCH ×2 (15:08→20:14)
[2020-02-25] MEDS: Acetaminophen 650 MG RECTAL SUPP RC SCH ×3 (00:28→04:53)
[2020-02-25] MEDS: Morphine Sulfate Oral CONC 10 MG/0.5 ML ORAL.SYG PO PRN (01:58)
[2020-02-25] MEDS: *HR* LORazepam Oral Conc 2 MG/ML PO PRN (01:58)
== END 2020-02-25 08:26 | disposition expired | DRG 951 ==
LOC: 2ANU 15:12
PROVIDERS: ADMIT Internal Medicine Hospice and Palliative Medicine; ATTEND Internal Medicine Hospice and Palliative Medicine